=== PATIENT | male | born 1950 | race Caucasian/White ===

== ENCOUNTER 2017-04-16 08:10 | Outpatient (CLI) | payer MEDICARE, OTHER ==
[2017-04-16] MEDS ORDERED: ALBUTEROL NEB 2.5 MG/3 ML INH ONE (10:00)
--- NOTE | 2017-04-21 07:28 | Ultrasound Report ---
EXAMINATION: AORTA SCREEN 04/16/2017. CLINICAL INDICATION: Screening. TECHNIQUE: Real-time scanning was performed with delivery representative static images obtained. FINDINGS: The abdominal aorta is normal in caliber, measuring 2.6 cm proximally , 1.9 cm in the mid portion, and 1.9 cm distally. The iliacs are normal in caliber. No free fluid is present. IMPRESSION: No evidence of abdominal aortic aneurysm. TD: 04/16/2017 10:48 [facility]
== END 2017-04-16 08:11 | disposition home or self-care (01) ==
LOC: DI 08:10
PROVIDERS: ATTEND Specialist
DX: Z11.59 Encounter for screening for other viral diseases (principal); J98.4 Other disorders of lung
CPT/HCPCS: 76706; 94010; 94729

== ENCOUNTER 2017-04-30 12:05 | Outpatient (CLI) | payer MEDICARE, OTHER ==
[2017-04-30] MEDS ORDERED: IOPAMIDOL-300 100 ML VIAL ONE (12:22)
[2017-04-30] MEDS ORDERED: IOPAMIDOL-300 100 ML VIAL IVP ONE (13:38)
--- NOTE | 2017-05-04 15:17 | CT Report ---
DATE OF SERVICE: 04/30/2017 CT CHEST WITH CONTRAST: 04/30/2017 CLINICAL INDICATION: Abnormal chest x-ray. TECHNIQUE: Axial CT images of the chest were obtained with 80 mL Isovue [address] intravenously. In accordance with CT protocol optimization, one or more of the following dose reduction techniques w ere utilized for this exam: Automated exposure control, adjustment of mA and/or KV based on patient size , or use of iterative reconstructive technique. COMPARISON: Chest x-ray 10/03/2015. FINDINGS: The heart and great vessels demonstrate mild atherosclerotic calcifications. No hilar or mediastinal lymphadenopathy is present. The lungs are clear. No effusion or pneumothorax is present . Limited evaluation of upper abdominal structures demonstrates normal adrenal glands. Osseous structu res demonstrate degenerative changes. IMPRESSION: No evidence of pulmonary nodule or mass lesion. TD: 04/30/2017 22:51
== END 2017-04-30 12:06 | disposition home or self-care (01) ==
LOC: DI 12:05
PROVIDERS: ATTEND Internal Medicine
DX: R91.8 Other nonspecific abnormal finding of lung field (principal); M81.0 Age-related osteoporosis without current pathological fracture; Z96.643 Presence of artificial hip joint, bilateral
CPT/HCPCS: 71260; 77080; 77081; Q9967

== ENCOUNTER 2017-04-30 12:06 | Outpatient (CLI) | payer MEDICARE, OTHER ==
--- NOTE | 2017-05-05 15:54 | DEXA Report ---
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 TECHNIQUE: Dual energy x-ray absorptiometry (DXA) was performed on a [employer] system. Regions measured are the AP spine, femoral neck, and, if needed, forearm. COMPARISON: None. In accordance with the International Society for Clinical Densitometry (ISCD) guidelines, data from previous exams may be reanalyzed using current recommendations and techniques. This is done to allow a more accurate basis for comparison with the current study. FINDINGS Data for the lumbar spine is as follows: REGION BMD (g/cm/cm) T-SCORE Z-SCORE L1 1.477 2.6 2.6 L2 1.605 3.0 3.0 L3 1.670 3.6 3.5 L1-L3 1.588 3.1 3.1 NOTE: All evaluable vertebrae are used for classification. Data for the left forearm is as follows: REGION BMD (g/cm/cm) T-SCORE Z-SCORE 1/3 0.994 0.0 0.8 NOTE: The 33% radius of the nondominant forearm is used for classification. IMPRESSION 1. THE WHO CLASSIFICATION BASED ON THE INTERNATIONAL REFERENCE STANDARD IS NORMAL. THE FRACTURE RISK IS NOT INCREASED. 2. LEFT FOREARM PERFORMED DUE TO BILATERAL HIP REPLACEMENTS. L4 EXCLUDED, DUE TO THE PATIENT'S REPORTED HISTORY OF L4-L5 SURGERY. RECOMMENDATION: Patients with diagnosis of osteoporosis or osteopenia should have regular bone mineral density assessment. For those eligible for Medicare, routine testing is allowed once every 2 years. Testing frequency can be increased for patients who have rapidly progressing disease or for those who are receiving medical therapy to restore bone mass. COMMENT: World Health Organization (WHO) definitions for osteoporosis and osteopenia: NORMAL BMD: T-score at 1.0 or higher, fracture risk is low. OSTEOPENIA BMD: T-score between 1.0 and -2.5, fracture risk is increased. OSTEOPOROSIS BMD: T-score at 2.5 or lower, fracture risk high. National Osteoporosis Foundation recommends: 1. Obtain adequate dietary calcium (at least 1200 mg per day) and vitamin D (400 -800 international units per day). 2. Participate, as appropriate, in regular weightbearing and muscle- strengthening exercise. 3. Avoid tobacco use and reduce alcohol and caffeine intake. 4. For more detailed information see the website at www.NOF.org. MTDD
== END 2017-04-30 12:07 | disposition home or self-care (01) ==
LOC: DI 12:06
PROVIDERS: ATTEND Specialist
DX: M81.0 Age-related osteoporosis without current pathological fracture (principal); Z96.643 Presence of artificial hip joint, bilateral
CPT/HCPCS: 77080; 77081

== ENCOUNTER 2019-02-03 11:23 | Outpatient (CLI) | payer MEDICARE, OTHER ==
--- NOTE | 2019-02-03 16:27 | Nuclear Medicine Report ---
Reason: RT KNEE JOINT REPLACEMENT, R LOOSENING Procedure Date: 02/03/2019 Accession Number: [id number] / [id number] Procedure: NM - Bone 3-Phase CPT Code: FULL RESULT: EXAM: TRIPLE-PHASE BONE SCAN LIMITED EXAM DATE: 02/03/2019 03:44 PM. CLINICAL HISTORY: Painful prosthetic right knee. COMPARISON: None. TECHNIQUE: Patient was injected with 31.4 mCi of technetium 99m MDP intravenously with flow phase gamma camera imaging anteriorly over the knees, 5 seconds per frame for 1 minute. Subsequently, blood pool images of the pelvis, knees, and feet were obtained. The patient returned 3 hours later for multiple spot images of the knees and feet. FINDINGS: Flow Phase: There is asymmetrically increased arterial flow to the entire right lower extremity. Normal left lower extremity flow. Blood Pool Phase: There is increased right periprosthetic scintigraphic activity on blood pool imaging. Otherwise normal blood pool phase. Delayed Phase: On delayed imaging, there is generalized increased scintigraphic activity of the entire distal right femur and proximal right tibia which is secondary to asymmetrically increased blood flow to that extremity. In addition, there is focally increased scintigraphic activity adjacent to both the femoral and tibial components. No scintigraphic abnormality of the left knee. IMPRESSION: 1. Abnormal scintigraphic findings of the right lower extremity and periprosthetic right knee on all three phases, as described above. The scintigraphic findings predominate in the arterial flow and blood pool phases, suggesting infection. RADIA
== END 2019-02-03 11:24 | disposition home or self-care (01) ==
LOC: DI 11:23
PROVIDERS: ATTEND Orthopaedic Surgery
DX: R93.6 Abnormal findings on diagnostic imaging of limbs (principal); Z96.651 Presence of right artificial knee joint
CPT/HCPCS: 78315

== ENCOUNTER 2019-07-20 12:09 | Outpatient (CLI) | payer MEDICARE, OTHER ==
--- NOTE | 2019-07-20 23:35 | XRAY Report ---
Reason: WHEEZING Procedure Date: 07/20/2019 Accession Number: [id number] / [id number] Procedure: XR - Chest 2 View X-Ray CPT Code: 80320 Final Report FULL RESULT: EXAM: CHEST RADIOGRAPHY EXAM DATE: 07/20/2019 12:20 PM. CLINICAL HISTORY: WHEEZING. COMPARISON: CHEST 2 VIEW PA/LAT 10/03/2015 7:55 AM. TECHNIQUE: 2 views. FINDINGS: Lungs/Pleura: Minimal left base linear atelectasis or scarring, unchanged. No consolidation, pleural effusion or pneumothorax. Mediastinum: Heart and mediastinal contours are unremarkable. IMPRESSION: No acute findings. RADIA
== END 2019-07-20 12:10 | disposition home or self-care (01) ==
LOC: DI 12:09
PROVIDERS: ATTEND Internal Medicine
DX: R06.2 Wheezing (principal)
CPT/HCPCS: 71046

== ENCOUNTER 2019-09-27 09:24 | Outpatient (CLI) | payer MEDICARE, OTHER ==
[~2019-09-27 09:24] MED LIST: ALBUTEROL 1 PUFF INH SCH
== END 2019-09-27 09:25 | disposition home or self-care (01) ==
LOC: RT 09:24
PROVIDERS: ATTEND Internal Medicine
DX: R06.2 Wheezing (principal)
CPT/HCPCS: 94060

== ENCOUNTER 2020-03-19 10:52 | Outpatient (CLI) | payer MEDICARE, OTHER | END 2020-03-19 10:53 | disposition home or self-care (01) | LOC: LAB.S 10:52 | PROVIDERS: ATTEND Urology | DX: N39.0 Urinary tract infection, site not specified (principal) | CPT/HCPCS: 87086 ==

== ENCOUNTER 2020-10-02 15:17 | Outpatient (CLI) | payer MEDICARE, OTHER ==
--- NOTE | 2020-10-02 15:55 | CT Report ---
PROCEDURE: Abdomen/Pelvis WO INDICATIONS: VENTRAL HERNIA TECHNIQUE: Noncontrast 5 mm thick sections acquired from the diaphragms to the symphysis. 5 mm coronal and sagi ttal reformats were then performed. For radiation dose reduction, the following was used: automated exposure control, adjustment of mA and/or kV according to patient size. COMPARISON: None. FINDINGS: Image quality: Degraded by hip arthroplasty artifact.. ABDOMEN: Lung bases: Lung bases are clear. Heart size is normal. Solid organs: Liver and spleen are normal in size. Gallbladder is contracted Pancreas is normal in contours. No adrenal nodules. Kidneys are normal in size, without hydronephrosis or nephrolithiasi s. Parapelvic left renal cysts are present. Peritoneum and bowel: Unenhanced bowel loops demonstrate normal wall thickness and caliber. No free fluid or air. Nodes and vessels: No retroperitoneal or mesenteric adenopathy by size criteria. Aorta and inferior vena cava are normal in caliber. Miscellaneous: Fat-containing periumbilical anterior abdominal wall hernia measuring roughly 45 mm tr ansverse without bowel contents. Mild fast rating within the herniated fat is present, possibly indic ating incarceration. There is mesh within the anterior abdominal wall just superior to this hernia. PELVIS: Genitourinary: Bladder wall thickness is normal. Miscellaneous: No inguinal hernias or adenopathy. Bones: No suspicious bony lesions. No vertebral body compression fractures. IMPRESSION: 1.Perimesh bilateral hip arthroplasty has been performed. Fat-containing hernia with possible incarce ration. No bowel contents within the hernia. Reviewed by: Scarlett Dawkins MD on 10/02/2020 3:53 PM PDT Approved by: Scarlett Dawkins MD on 10/02/2020 3:53 PM PDT Station ID: [id number]
== END 2020-10-02 15:18 | disposition home or self-care (01) ==
LOC: DI 15:17
PROVIDERS: ATTEND General Practice
DX: K46.9 Unspecified abdominal hernia without obstruction or gangrene (principal); Z96.643 Presence of artificial hip joint, bilateral

== ENCOUNTER 2020-10-04 14:00 | Outpatient (CLI) | payer MEDICARE, OTHER | END 2020-10-04 14:01 | disposition home or self-care (01) | LOC: COV 14:00 | PROVIDERS: ATTEND General Practice | DX: Z01.812 Encounter for preprocedural laboratory examination (principal); K43.2 Incisional hernia without obstruction or gangrene; Z20.822 Contact with and (suspected) exposure to COVID-19 ==

== ENCOUNTER 2021-03-31 08:00 | Outpatient (CLI) | payer MEDICARE, OTHER ==
--- NOTE | 2021-03-31 08:54 | XRAY Report ---
PROCEDURE: Lumbar Spine 2 View INDICATIONS: RIGHT SIDED SCIATICA TECHNIQUE: 3 views of the lumbar spine were acquired. COMPARISON: None. FINDINGS: Bones: 5 [id number] vertebrae are present. There is dextro convex curvature of the lumbar spine . No vertebral body compression fractures. No suspicious bony lesions. Multilevel disc space narrow ing and degenerative endplate changes are seen throughout the lumbar spine. There is moderate to lyssa re facet hypertrophy from L3-4 through L5-S1. Bilateral hip arthroplasties are partially imaged. Soft tissues: Overlying bowel gas pattern is normal. No suspicious soft tissue calcifications. IMPRESSION: No acute osseous abnormality. Moderate to severe spondylosis and mild dextroconvex scoli osis are noted. Reviewed by: Keanu Kerr MD on 03/31/2021 8:53 AM PST Approved by: Keanu Kerr MD on 03/31/2021 8:53 AM [facility] Station ID: [id number]
== END 2021-03-31 23:59 | disposition home or self-care (01) ==
LOC: DI.S 08:00
PROVIDERS: ATTEND Physician Assistant
DX: M47.816 Spondylosis without myelopathy or radiculopathy, lumbar region (principal); M41.9 Scoliosis, unspecified; M47.817 Spondylosis without myelopathy or radiculopathy, lumbosacral region

== ENCOUNTER 2021-04-10 13:59 | Outpatient (CLI) | payer MEDICARE, OTHER ==
--- NOTE | 2021-04-10 17:09 | MRI Report ---
PROCEDURE: Lumbar Spine W/O INDICATIONS: R BACK PAIN LEG PAIN TECHNIQUE: Noncontrast sagittal T1 spin echo and T2 fast echo, sagittal STIR, axial T1 and T2 fast spin echo thr ough the lumbar spine. In cases with scoliosis, additional coronal T2 fast spin echo may be performe d. COMPARISON: Correlation is made with lumbar plain films, 03/31/2021. Correlation is also made with a bdomen and pelvis CT, 10/02/2020. FINDINGS: Image quality: Motion artifact is noted. Alignment and Curvature: Mild dextroconvex scoliotic curvature is seen. There is mild retrolisthesis seen at the L1-L2 level. Bone Marrow: Marrow is of normal overall signal. No acute vertebral body compression fractures. Spinal Cord: Conus medullaris terminates at the T12-L1 level. Visualized cord demonstrates normal s ignal and size. Paraspinous Soft Tissues: No paravertebral masses. Relatively prominent left peripelvic cysts are s een, with mild right kidney parapelvic cysts. T12-L1: Mild loss of disc height and disc signal are seen. Mild to moderate disc bulge is seen, with a slight central/right disc protrusion seen. No significant neuroforaminal narrowing is seen. Mild central canal narrowing is seen. L1-L2: Moderate to severe loss of disc height and disc signal can be seen. Reactive marrow endplat e changes are seen, which demonstrate mixed signal and are attributed to a combination of edema and f atty metaplasia (Modic type I and Modic type II changes). At least moderate disc bulge is seen, whic h is eccentric to the right. Posteriorly directed endplate osteophytes are seen, with an associated c entral disc protrusion. Mild to moderate facet hypertrophy is seen. There is at least moderate bilate ral neuroforaminal narrowing seen, left worse than right. Moderate to severe central canal narrowing is seen, as on series 601 image 30. L2-L3: At least moderate loss of disc height and disc signal can be seen. Moderate disc bulge is seen at this level. Mild facet hypertrophy is seen. There is moderate left-sided and minimal righ t-sided neuroforaminal narrowing seen. Moderate central canal narrowing is seen. L3-L4: Moderate to severe loss of disc height and disc signal can be seen. Reactive marrow endplat e changes are seen, which are hyperintense on T1-weighted and T2-weighted imaging, without significan t increased STIR signal. These imaging findings are most consistent with fatty metaplasia (Modic type 2 change). At least moderate disc bulge is seen. There is a relatively prominent central disc protr usion seen. Moderate facet hypertrophy is seen. Associated hypertrophy of the ligamentum flavum can be seen. Moderate to severe bilateral neuroforaminal narrowing can be seen, left worse than right. Compression is seen upon the exiting nerve roots. Severe central canal narrowing is seen, as on seri es 601 image 18. L4-L5: At least moderate loss of disc height and disc signal can be seen at this level. Postoperati ve changes are seen, with prior left hemilaminectomy. Moderate disc bulge is seen at this level. A mild superimposed central disc protrusion can be seen. At least moderate facet hypertrophy is seen. T here is moderate bilateral neuroforaminal narrowing seen. Moderate central canal narrowing is seen. L5-S1: Moderate loss of disc height and signal are seen. Moderate disc bulge is seen, which is ecce ntric to the left. Moderate facet hypertrophy is seen. There is moderate to severe bilateral neurof oraminal narrowing seen. Compression is seen upon the exiting nerve roots. Moderate central canal n arrowing is seen. IMPRESSION: Multiple levels of lumbar spine degenerative change are seen, which are overall worst in feriorly. There is severe central canal narrowing seen at L3-L4. Several sites of significant neuroforaminal narrowing can be seen, with associated exiting nerve root compression. Mild dextroconvex scoliotic curvature is seen. Prior right hemilaminectomy change at L4-L5. Reviewed by: Eamon Raya MD on 04/10/2021 4:08 PM [facility] Approved by: Eamon Raya MD on 04/10/2021 4:08 PM [facility] Station ID: [id number]
== END 2021-04-10 14:00 | disposition home or self-care (01) ==
LOC: DI 13:59
PROVIDERS: ATTEND Physician Assistant
DX: M51.35 Other intervertebral disc degeneration, thoracolumbar region (principal); M48.05 Spinal stenosis, thoracolumbar region; M51.25 Other intervertebral disc displacement, thoracolumbar region; M51.36 Other intervertebral disc degeneration, lumbar region; M51.26 Other intervertebral disc displacement, lumbar region; M48.061 Spinal stenosis, lumbar region without neurogenic claudication; M47.815 Spondylosis without myelopathy or radiculopathy, thoracolumbar region; M47.816 Spondylosis without myelopathy or radiculopathy, lumbar region; M47.817 Spondylosis without myelopathy or radiculopathy, lumbosacral region; M51.37 Other intervertebral disc degeneration, lumbosacral region; M48.07 Spinal stenosis, lumbosacral region

== ENCOUNTER 2021-09-30 08:00 | Outpatient (CLI) | payer MEDICARE, OTHER | END 2021-09-30 23:59 | disposition home or self-care (01) | LOC: LAB.S 08:00 | PROVIDERS: ATTEND Physician Assistant Medical | DX: R07.0 Pain in throat (principal); Z20.822 Contact with and (suspected) exposure to COVID-19 | CPT/HCPCS: 87070; U0004 ==

== ENCOUNTER 2021-10-28 07:21 | Outpatient (CLI) | payer MEDICARE, OTHER ==
--- NOTE | 2021-10-28 08:55 | XRAY Report ---
PROCEDURE: Chest 2 View X-Ray INDICATIONS: COUGH TECHNIQUE: 2 view(s) of the chest. COMPARISON: 2 views of the chest dated 07/20/2019 FINDINGS: Surgical changes and devices: None. Lungs and pleura: No pleural effusions or pneumothorax. Lungs are clear. Mediastinum: Mediastinal contours are normal. Heart size is normal. Bones and chest wall: No suspicious bony abnormalities. Soft tissues appear unremarkable. IMPRESSION: No acute cardiopulmonary findings. Reviewed by: Lor Cramer MD on 10/28/2021 8:53 AM PDT Approved by: Lor Cramer MD on 10/28/2021 8:53 AM PDT Station ID: [id number]
== END 2021-10-28 07:22 | disposition home or self-care (01) ==
LOC: DI.S 07:21
PROVIDERS: ATTEND Physician Assistant
DX: R05.9 Cough, unspecified (principal)

== ENCOUNTER 2022-03-19 11:25 | Outpatient (CLI) | payer MEDICARE, OTHER ==
[2022-03-19 12:20] LABS: INFLUENZA A- RESP PCR PANEL NOT DETECTED; INFLUENZA B - RESP PCR PANEL NOT DETECTED; RSV- RESP PCR PANEL DETECTED; SARS-CoV-2 -RESP PCR PANEL NOT DETECTED
== END 2022-03-19 11:26 | disposition home or self-care (01) ==
LOC: LAB 11:25
PROVIDERS: ATTEND Physician Assistant Medical
DX: J02.9 Acute pharyngitis, unspecified (principal); Z20.822 Contact with and (suspected) exposure to COVID-19
CPT/HCPCS: 87637

== ENCOUNTER 2022-03-30 08:00 | Outpatient (CLI) | payer MEDICARE, OTHER ==
--- NOTE | 2022-03-30 15:14 | XRAY Report ---
PROCEDURE: Chest 2 View X-Ray INDICATIONS: ACUTE COUGH TECHNIQUE: 2 views of the chest were acquired. COMPARISON: 10/28/2021 FINDINGS: Surgical changes and devices: None. Lungs and pleura: No pleural effusions or pneumothorax. Minor strandy bibasilar scarring, chronic. Lungs are otherwise clear. Mediastinum: Mediastinal contours are normal. Heart size is normal. Bones and chest wall: No suspicious bony abnormalities. Soft tissues appear unremarkable. IMPRESSION: 1. No acute cardiopulmonary disease. 2. Chronic bibasilar scarring. Reviewed by: Kathy Kelly MD on 03/30/2022 3:13 PM PST Approved by: Kathy Kelly MD on 03/30/2022 3:13 PM PST Station ID: [id number]
== END 2022-03-30 23:59 | disposition home or self-care (01) ==
LOC: DI.S 08:00
PROVIDERS: ATTEND Physician Assistant
DX: R05.1 Acute cough (principal)

== ENCOUNTER 2022-09-15 12:06 | Outpatient (CLI) | payer MEDICARE, OTHER ==
[2022-09-15 12:29] LABS: CREATININE 0.9 mg/dL (0.6-1.2)
[2022-09-15] MEDS ORDERED: iohexoL-300 100 ML VIAL IVP ONE (15:26)
--- NOTE | 2022-09-15 16:20 | CT Report ---
PROCEDURE: CHEST W INDICATIONS: CHRONIC COUGH CONTRAST: 100ml Omnipaque 300 TECHNIQUE: After the administration of intravenous contrast, 1 mm axial images were acquired from the pulmonary apices through the posterior costophrenic angles. Axial 5 mm soft tissue kernel reconstructions were performed as well as 8 mm axial MIP and coronal and sagittal 5 mm reformations. For radiation dose reduction, the following was used: automated exposure control, adjustment of mA and/or kV according to patient size. COMPARISON: CT abdomen pelvis 10-21, CT chest 04/30/2017 FINDINGS: Image quality: Excellent. Lungs and pleura: No consolidation. No pleural effusions. No pneumothorax. No suspicious pulmonary n odules which require follow up. Mediastinum: Heart size is normal. No pericardial effusions. No mediastinal adenopathy by size criter ia. No large vessel abnormality. Mild hiatal hernia. Chest wall and lower neck: Thyroid is unremarkable. No axillary or supraclavicular adenopathy by size . Bones: No aggressive osseous abnormality. Upper Abdomen: Unremarkable. IMPRESSION: No acute pulmonary process. Reviewed by: Meena Nye MD on 09/15/2022 4:18 PM PDT Approved by: Meena Nye MD on 09/15/2022 4:18 PM PDT Station ID: [id number]
--- NOTE | 2022-09-15 18:10 | CT Report ---
PROCEDURE: SINUS SCREENING WO INDICATIONS: SINUSITIS TECHNIQUE: Noncontrast 3.0 mm axial images acquired from the frontal sinuses to the mid-sella, with coronal and sagittal reformats. For radiation dose reduction, the following was used: automated exposure control , adjustment of mA and/or kV according to patient size. COMPARISON: Correlation is made with head CT, 02/20/2016. FINDINGS: Image quality: Excellent. Maxillary Sinuses: Moderate mucosal thickening is seen within the maxillary sinuses, left worse than right. There is demineralization of the medial reed of the maxillary sinuses. Ethmoid Air Cells: Moderate mucosal thickening can be seen anteriorly. There is demineralization of several reed of the ethmoid air cells. Sphenoid Sinuses: No bony remodeling or destruction. Minimal mucosal thickening can be seen anterior ly. Frontal Sinuses: No bony remodeling or destruction. Mild to moderate mucosal thickening can be seen within the inferior medial frontal sinuses. Ostiomeatal Complexes: The ostiomeatal complexes are patent, yet they are constitutionally narrowed, with bilateral Carlos Manuel cells. Miscellaneous: Visualized intra-orbital contents are normal. No kishor bullosa. There is mild to m oderate S shaped nasal septal deviation. IMPRESSION: Multifocal paranasal sinus disease, which is worst within the maxillary sinuses. Areas of bony demineralization are seen, which are consistent with chronic sinusitis. The ostiomeatal complexes are patent, yet they are constitutionally narrowed, with bilateral Carlos Manuel c ells. Reviewed by: Eamon Raya MD on 09/15/2022 5:09 PM [facility] Approved by: Eamon Raya MD on 09/15/2022 5:09 PM [facility] Station ID: [id number]
== END 2022-09-15 12:07 | disposition home or self-care (01) ==
LOC: LAB 12:06
PROVIDERS: ATTEND Student in an Organized Health Care Education/Training Program
DX: R05.3 Chronic cough (principal); J01.80 Other acute sinusitis
CPT/HCPCS: 36415; 82565

== ENCOUNTER 2022-09-15 15:19 | Outpatient (CLI) | payer MEDICARE, OTHER ==
[~2022-09-15 15:19] MED LIST changes: -ALBUTEROL 1 PUFF INH SCH; +ALBUTEROL 1 PUFF INH STA; +iohexoL-300 100 ML VIAL ONE
== END 2022-09-15 23:59 | disposition home or self-care (01) ==
LOC: RT 15:19
PROVIDERS: ATTEND Student in an Organized Health Care Education/Training Program
DX: R05.3 Chronic cough (principal)
CPT/HCPCS: 94060; 94727; 94729; Q9967

== ENCOUNTER 2022-10-06 13:07 | Outpatient (CLI) | payer MEDICARE, OTHER ==
--- NOTE | 2022-10-06 13:58 | XRAY Report ---
PROCEDURE: Calcaneus RT INDICATIONS: ACUTE RT CALCANEUS PX TECHNIQUE: Two views of the calcaneus were acquired. COMPARISON: None FINDINGS: Bones: No fractures or dislocations. No suspicious bony lesions. Soft tissues: No suspicious calcifications. Achilles tendon appears normal. IMPRESSION: No evidence acute bony abnormality of the right calcaneus Reviewed by: Shaun Chandler MD on 10/06/2022 1:57 PM PDT Approved by: Shaun Chandler MD on 10/06/2022 1:57 PM PDT Station ID: [id number]
== END 2022-10-06 13:08 | disposition home or self-care (01) ==
LOC: DI 13:07
PROVIDERS: ATTEND Podiatrist
DX: M79.671 Pain in right foot (principal)

== ENCOUNTER 2022-10-16 12:35 | Day surgery (SDC) | payer MEDICARE, OTHER ==
[2022-10-16] MEDS ORDERED: LACTATED RINGERS 1,000 ML IV ONE ×2 (12:38→14:05)
--- NOTE | 2022-10-16 13:14 | ANESTHESIA ---
Pre-Anesthesia VS, & Labs - Diagnosis questionable silent reflux - Procedure EGD Vital Signs: Temp Pulse Resp BP Pulse Ox O2 Flow Rate 36.3 C L 78 18 140/91 H 97 10/16/22 12:51 10/16/22 12:51 10/16/22 12:51 10/16/22 12:51 10/16/22 12:51 Height: 5 ft 11 in Weight (kg): 94 kg Body Mass Index: 28.9 BMI Classification: Overweight - NPO >8 hours - Lab Results Lab results reviewed: Yes Home Medications and Allergies Allergies/Adverse Reactions: Allergies Allergy/AdvReac Type Severity Reaction Status Date / Time No Known Drug Allergies Allergy Verified 10/16/22 12:55 Anes History & Medical History - Anesthetic History Anesthesia Complications: reports: No previous complications Family history of Anesthesia Complications: Denies Family history of Malignant Hyperthermia: Denies - Medical History Cardiovascular: reports: None Pulmonary: reports: Asthma Gastrointestinal: reports: GERD (questionable, denies symptoms) Urinary: reports: None Neuro: reports: None Musculoskeletal: reports: None Endocrine/Autoimmune: reports: None Blood Disorders: reports: None Skin: reports: None Smoking Status: Never smoker Psychosocial: reports: No issues indicated Exam General: Alert, Oriented x3, Cooperative Dental: WNL Mouth Openin Fingerbreadth Neck Mobility: Normal Mallampati classification: II Thyromental Distance: 4-6 cm Cardiovascular: Regular rate Plan Anesthesia Type: MAC Consent for Procedure(s) Verified and Reviewed: Yes Code Status: Attempt Resuscitation ASA classification: 2-Mild systemic disease Is this case an emergency?: No
[2022-10-16] MEDS ORDERED: LIDOCAINE-PF 2% 10 ML AMP SUBQ ONE (13:41)
[2022-10-16] MEDS ORDERED: PROPOFOL 500 MG/50 ML 500 MG/50 ML VIAL ONE (13:41)
[2022-10-16 14:14] VITALS: BP 139/90
--- NOTE | 2022-10-16 16:40 | ANESTHESIA POST OP EVALUATION ---
Anesthesia Post Eval - Post Anesthesia Eval Vitals: Last Vital Signs Temp 36.7 C 10/16/22 14:26 Pulse 78 10/16/22 14:26 Resp 16 10/16/22 14:26 BP 139/90 H 10/16/22 14:26 Pulse Ox 96 10/16/22 14:26 O2 Flow Rate CV Function Including HR & BP: Stable Pain Control: Satisfactory Nausea & Vomiting: Negative Mental Status: Baseline Respiratory Status: Airway Patent Hydration Status: Satisfactory Anesthesia Complications: None
== END 2022-10-16 12:36 | disposition home or self-care (01) ==
LOC: SDS 12:35
PROVIDERS: ATTEND Surgery
PROC: 0DB58ZX Excision of Esophagus, Via Natural or Artificial Opening Endoscopic, Diagnostic (ICD-10-PCS; principal; 2022-10-16 14:15)
DX: R05.8 Other specified cough (principal); J45.901 Unspecified asthma with (acute) exacerbation
CPT/HCPCS: 43239; J7120

== ENCOUNTER 2022-11-26 10:02 | Outpatient (CLI) | payer MEDICARE, OTHER ==
--- NOTE | 2022-11-26 10:49 | Sleep Patient Instructions ---
Sleep Center Visit Summary - Patient Visit Information Reason for Visit: Initial consult for evaluation of sleep disordered breathing and other sleep issues. - Patient Instructions Instructions Attached: Sleep Study, Sleep Clinic Visit, Sleep Study Home Monitor Additional Instructions: You will be completing a sleep study, either an in-lab polysomnography (PSG) or home sleep study (HST). You will follow-up in the sleep care office after the sleep study is completed to hear the results and talk about therapy, if needed. You will be called by our office staff to schedule this appointment, but you may contact us with any questions. - Clinic Information Contact: [facility] [address] [place] [address] [email or web address] T: [phone]
--- NOTE | 2022-11-26 11:00 | SLEEP CARE CONSULTATION ---
Information from patient questionnaire entered by Yocasta Lr. I have reviewed and concur with the information entered by Yocasta Lr. This document represents the service I personally performed and the decisions made by me, Aida Fang ARNP. History of Present Illness Service Date and Time: 11/26/2022 1002 Reason for Visit: New patient Chief Complaint: reports: Snoring, Observed pauses in breathing Date of Onset: 2-3YRS Usual bedtime: 10PM Time it takes to fall asleep: 2-3MIN Snores at night: Yes Observed to quit breathing while asleep: Yes Sleeps alone due to snoring: No Number of times waking at night: SEVERAL Reasons for waking at night: reports: Other (UNKNOWN; things on his mind). denies: Choking, Snoring, Gasping for air Toss, Turn, or Twitch while sleeping: Yes Recalls having dreams: Yes (has some vivid dreams) Usually gets out of bed at: 5-530AM Feels refreshed in the morning: Yes (moderately rested) Morning headache: No Sleepy or fatigued during the day: No Ever fallen asleep while driving: No Takes day naps: Yes (daily during week; 20-25 mins) Dreams during day naps: No Prior sleep studies: No Additional HPI information: I had the pleasure of seeing JACK MARTIN today regarding the possibility of him having a sleep disorder. His current complaints are snoring and observed pauses in breathing. Patient states his is concerned because his snoring is worsening. He states he snores more when he is laying on his back. She has also noticed that he would have more pauses in breathing. 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 He states he is mostly refreshed in the mornings when he gets out of bed. He falls asleep quickly, wakes up frequently at night and averages 5 to 6 hours of sleep. - Parasomnia Symptoms Ever been unable to move upon waking from sleep: No Walks in sleep: No Talks in sleep: No Ever acted out dreams in sleep: No Ever felt weak in the knees when startled or emotional: No Bothered by creepy, crawly, restless sensations in legs: No Problems with memory or concentration: No Subjective Initial [place] Sleepiness Scale score: 13 (11/26/22) Past Medical History Past Medical History: reports: Asthma, Other (BPH) Social History The patient's occupation is a RETIRED 2020. Patient is and lives in [place]. Have you smoked in the past 12 months: No Alcohol use: Yes Alcohol amount and frequency: 2-4 GLASSES WINE DAILY Caffeine use: Yes Caffeine amount and frequency: 1-2 CUPS DAILY Family History Family history of sleep disordered breathing: No (don't know) Allergies and Home Medications Known drug allergies: No Drug allergies reviewed: Yes Home medication list reviewed: Yes Allergy and home medication list: Allergies No Known Drug Allergies Allergy (Verified 11/25/22 13:27) Medications: Flomax Advair Review of Systems Weight gain over past 5 years: 10 Cardiovascular: denies: high blood pressure Respiratory: reports: chronic cough (FOR 6-8MONTHS STOPPED APPX October) Gastrointestinal: denies: heartburn Neurological: denies: headaches Psychiatric: denies: anxiety, depression Ear/Nose/Throat: denies: tonsillectomy Physical Exam Vital signs obtained and entered by: YOCASTA Moore MA Blood Pressure: 142/82 (LEFT ARM) Cuff size: regular Heart Rate: 75 O2 Saturation: 97 Height: 5 ft 11 in Weight: 216 lb 3.2 oz Body Mass Index: 30.1 BMI Classification: Obese Neck circumference: 16 Mouth and throat: narrow oropharynx Soft palate: long Hard palate: normal Uvula: normal Uvula visualization: 25% Mallampati Class III Tongue: enlarged in size with teeth rivas on lateral edges Tonsils: small Neck: normal w/o lymphadenopathy or thyromegaly Heart: regular rate and rhythm Lungs: clear bilaterally Impression and Plan 1. Suspected Obstructive Sleep Apnea-Hypopnea Syndrome, as suggested by a history of loud and irregular snoring, observed cessation of breath while asleep and frequent awakening during the night. Narrow oropharynx and obesity are common predisposing factors for obstructive sleep apnea-hypopnea syndrome. I recommend proceeding to polysomnography to confirm the diagnosis and to assess severity. If the patient has significant sleep disordered breathing, a manual CPAP titration study will also be performed to find the optimal treatment pressure. I informed the patient of what the sleep studies involve and after some discussion, obtained agreement to proceed. The pathophysiology of obstructive sleep apnea-hypopnea syndrome was discussed with the patient and health risks of cardiovascular and cerebrovascular disease if not treated. 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 Patient agreed to plan. * Schedule polysomnography * Avoid long distance driving or driving when feeling sleepy. * Avoid alcohol, sedative and muscle relaxant around bedtime. * Attempt to lose weight. * Review instructions provided by trained office staff on how to prepare for the sleep study. * Return for follow-up after sleep study completed. Counseling Topics: Weight loss health impact Visit Type: In Office Time Spent with Patient (minutes): 36 Provider Statement: I spent 100% of the Face to Face Visit with the patient with greater than 50% spent counseling the patient and coordination of care.
[2022-11-26 11:06] VITALS: BP 142/82
== END 2022-11-26 10:03 | disposition home or self-care (01) ==
LOC: SC 10:02
PROVIDERS: ATTEND Nurse Practitioner Family
DX: G47.8 Other sleep disorders (principal); R06.83 Snoring; R06.81 Apnea, not elsewhere classified; E66.9 Obesity, unspecified; Z68.30 Body mass index [BMI] 30.0-30.9, adult
CPT/HCPCS: 99203; G0463; 99212

== ENCOUNTER 2022-12-30 20:34 | Outpatient (CLI) | payer MEDICARE, OTHER | END 2022-12-30 20:35 | disposition home or self-care (01) | LOC: SC 20:34 | PROVIDERS: ATTEND Nurse Practitioner Family | DX: G47.33 Obstructive sleep apnea (adult) (pediatric) (principal); G47.61 Periodic limb movement disorder | CPT/HCPCS: 95810 ==

== ENCOUNTER 2023-01-13 11:22 | Outpatient (CLI) | payer MEDICARE, OTHER ==
--- NOTE | 2023-01-13 11:19 | SLEEP CARE CONSULTATION ---
Information from patient questionnaire entered by Mandi Lr. I have reviewed and concur with the information entered by Mandi Lr. This document represents the service I personally performed and the decisions made by , Aida Fang ARNP. History of Present Illness Service Date and Time: 01/13/2023 1040 Accompanied by: Spouse Initial [place] Sleepiness Scale score: 13 (11/26/22) Current [place] Sleepiness Scale score: 9 (01/13/2023) Additional HPI information: JACK MARTIN returns via video telehealth visit for follow up and results of the recently performed polysomnography. He has sleep study showed moderate obstructive sleep apnea with an average AHI of 15 and tammy oxygen saturation of 84%. He also had mild periodic leg movements of sleep that did not contribute to sleep fragmentation. I explained the pathophysiology behind obstructive sleep apnea. We then spent quite a bit of time discussing different treatment options. For mild obstructive sleep apnea, surgery and oral appliance are alternatives to nasal CPAP therapy but in moderate or severe cases, nasal CPAP is the most effective and reliable treatment. I reviewed the impact of weight changes on sleep apnea and strongly recommended losing weight. Patient counseled not drink alcohol less than 4 hours before bedtime as it can increase snoring and apnea. Patient was cautioned about risks of drowsy driving until sleepiness symptoms resolve. Patient denies drowsy driving. Sleep Study - Results Type of Sleep Study: Polysomnography (COMPLETED 12/30/22) Prior sleep studies: No Polysomnography/Home Sleep Study results: IMPRESSION: The quality of the study is good. The patient had normal sleep efficiency. The sleep architecture was abnormal for sleep fragmentation and reduced amount of time spent in REM and slow wave sleep (N3). Respiratory monitoring showed moderate obstructive sleep apnea-hypopnea (AHI = 15.0) associated with frequent arousals, oxyhemoglobin desaturation and mild hypoxia (tammy oxygen saturation of 84%). The respiratory events occurred more frequently during supine sleep (supine AHI = 17.0; non-supine = 9.39). Snore was light in intensity. There was mild periodic leg movement of sleep not contributing to the sleep fragmentation. Cardiac rhythm was normal sinus rhythm with occasional premature ventricular contractions. No abnormal behavior (parasomnia) observed during the night. Allergies and Home Medications Known drug allergies: No Drug allergies reviewed: Yes Home medication list reviewed: Yes (no changes) Allergy and home medication list: Allergies No Known Drug Allergies Allergy (Verified 01/12/23 12:06) Review of Systems Review of systems same as previous: Yes (no changes) Physical Exam Vital signs obtained and entered by: MANDI Moore MA Height: 5 ft 11 in (PER PT) Weight: 207 lb (PER PT) Body Mass Index: 28.8 BMI Classification: Overweight Impression and Plan 1. Obstructive Sleep Apnea-Hypopnea Syndrome, moderate, with lowest oxygen saturation of 84%. Obviously this is the cause of the patients symptoms of unrefreshed sleep, and excessive daytime sleepiness. Positive pressure therapy could benefit asthma. The patient chose an oral appliance to treat their apnea. A month follow up will be made once he has his new oral appliance to see if appliance has reduced symptoms. If so, another polysomnography will be ordered with use of the oral appliance to check efficacy in reducing apnea. Until patient is able to use the oral appliance, positional therapy is advised to avoid supine sleep with pillow positioning or one of the commercial products because apnea is more severe supine. 2. Periodic limb movement, mild, that did not fragment patients sleep. Periodic limb movement of sleep (PLMS) is characterized by episodes of repetitive limb movements that occur during sleep and usually involve the lower limbs. The etiology is unknown. Caffeine can aggravate PLMS and should be avoided. Sleep hygiene methods can also improve sleep as well as lifestyle changes such as regular exercise. Patient was advised that no treatment is needed at this time. If symptoms increase, then further evaluation is indicated. * Oral appliance * Attempt to lose weight. * Avoid alcohol consumption near bedtime. * Avoid supine sleep until using oral appliance. * The patient is again cautioned about driving until sleepiness completely resolves. * Return one month after oral appliance obtained. I will assess response to therapy at that time. Counseling Topics: Sleeping position, Weight loss health impact Follow up with Sleep Care in: 3 months (with oral appliance) Plan: Oral appliance Visit Type: Telehealth Video Video Type: Lázaro Patient Location: Home Location of Provider: Office Patient agrees and consents to this telehealth visit type: Yes Patient agrees to have their insurance billed: Yes Time Spent with Patient (minutes): 24 Provider Statement: I spent 100% of the Telehealth Video Call with the patient with greater than 50% spent counseling the patient and coordination of care.
== END 2023-01-13 11:23 | disposition home or self-care (01) ==
LOC: SC 11:22
PROVIDERS: ATTEND Nurse Practitioner Family
DX: G47.33 Obstructive sleep apnea (adult) (pediatric) (principal); G47.61 Periodic limb movement disorder; E66.3 Overweight; Z68.28 Body mass index [BMI] 28.0-28.9, adult

== ENCOUNTER 2023-04-14 08:41 | Outpatient (CLI) | payer MEDICARE, OTHER ==
--- NOTE | 2023-04-14 20:58 | XRAY Report ---
PROCEDURE: Hip w/Pelvis 2-3V RT INDICATIONS: RIGHT HIP PAIN TECHNIQUE: AP pelvis with lateral view(s) of the right hip(s). COMPARISON: None. FINDINGS: Bones: Status post bilateral total hip arthroplasty. Hardware is intact with no perihardware lucency to suggest hardware loosening. Anatomic alignment. No acute fracture or dislocation of the right hip . Mild degenerative changes of the bilateral SI joints and pubic symphysis. [id number] degenera tive changes of the lower lumbar spine. No suspicious bony lesions. Soft tissues: No suspicious soft tissue calcifications or masses. Surgical clips project over the scrotum bilaterally. IMPRESSION: 1.No acute fracture or dislocation. If there is high clinical suspicion for a radiographically occult fracture, consider CT for further evaluation. 2.Bilateral total hip arthroplasty hardware is intact, without complication. Reviewed by: Crystal Cabrera MD on 04/14/2023 8:56 PM PST Approved by: Crystal Cabrera MD on 04/14/2023 8:56 PM PST Station ID: [id number]
== END 2023-04-14 08:42 | disposition home or self-care (01) ==
LOC: DI 08:41
PROVIDERS: ATTEND Physician Assistant
DX: M25.551 Pain in right hip (principal); Z96.643 Presence of artificial hip joint, bilateral

== ENCOUNTER 2023-05-26 08:00 | Outpatient (CLI) | payer MEDICARE, OTHER ==
--- NOTE | 2023-05-26 17:34 | XRAY Report ---
PROCEDURE: Knee 3V LT INDICATIONS: LEFT KNEE PAIN TECHNIQUE: 3 views of the knee(s) were acquired. COMPARISON: None. FINDINGS: Bones: No fractures or dislocations. Osteophytic lipping at the lateral and patellofemoral compartme nts. Overall mild to moderate degenerative change. No suspicious bony lesions. Soft tissues: No knee joint effusion. No suspicious soft tissue calcifications or masses. Chondrocal cinosis. IMPRESSION: No acute bony abnormality. Chondrocalcinosis. Mild to moderate degenerative change. Reviewed by: Dylan Elizalde MD on 05/26/2023 5:33 PM PST Approved by: Dylan Elizalde MD on 05/26/2023 5:33 PM PST Station ID: [id number]
== END 2023-05-26 23:59 | disposition home or self-care (01) ==
LOC: DI.S 08:00
PROVIDERS: ATTEND Internal Medicine
DX: M17.12 Unilateral primary osteoarthritis, left knee (principal); M11.262 Other chondrocalcinosis, left knee

== ENCOUNTER 2023-07-07 12:48 | Outpatient (CLI) | payer MEDICARE, OTHER ==
--- NOTE | 2023-07-07 19:23 | MRI Report ---
PROCEDURE: Lumbar Spine WO INDICATIONS: SPINAL STENOSIS TECHNIQUE: Noncontrast sagittal T1 spin echo and T2 fast echo, sagittal STIR, axial T1 and T2 fast spin echo thr ough the lumbar spine. In cases with scoliosis, additional coronal T2 fast spin echo may be performe d. COMPARISON: MRI lumbar spine 04/10/2021. FINDINGS: Image quality: Excellent. Alignment and Curvature: There is trace multilevel retrolisthesis. Bone Marrow: Marrow is of normal overall signal. Mild reactive endplate changes are present at L5-S1 , minimal L4-5. No acute vertebral body compression fractures. Spinal Cord: Conus medullaris terminates at the L1 level. Visualized cord demonstrates normal signa l and size. Paraspinous Soft Tissues: No paravertebral masses. Simple bilateral renal cysts. Discs: Multilevel moderate to severe disc desiccation. T12-L1: Mild disc bulge with mild spinal stenosis. No foraminal narrowing. No interval change. L1-L2: Mild disc bulge with moderate to severe spinal stenosis. Epidural lipomatosis is present. M oderate bilateral foraminal narrowing, left greater than right. Overall appearance is stable. Facet a nd ligamentum flavum hypertrophy are present. L2-L3: Mild disc bulge with moderate spinal stenosis. Moderate left and minimal right foraminal na rrowing. Facet and ligamentum flavum hypertrophy are present. Overall appearance is stable. L3-L4: Mild disc bulge with severe spinal stenosis and mild canal compression. Moderate to severe l eft and severe right foraminal narrowing, with nerve root compression bilaterally of the L3 nerve stacy ts. Mild interval progression on the left. Facet and ligamentum flavum hypertrophy are present. L4-L5: Mild disc bulge with moderate spinal stenosis. Moderate bilateral foraminal narrowing with f acet and ligamentum flavum hypertrophy. No interval change. L5-S1: Mild disc bulge with moderate to severe spinal stenosis. Severe right and moderate to severe left foraminal narrowing with slight appearance of interval progression on the right. Compression of exiting L5 nerve roots bilaterally. IMPRESSION: Multilevel degenerative changes with areas of interval progression as above. Multilevel spinal stenosis most severe at L3-4 secondary to disc bulge with contributing effect of fa cet/ligament flavum arthropathy. Multilevel foraminal narrowing most prominent at L5-S1 secondary to facet/ligamentum flavum arthropat hy. Reviewed by: Meena Nye MD on 07/07/2023 7:22 PM PST Approved by: Meena Nye MD on 07/07/2023 7:22 PM PST Station ID: [id number]
== END 2023-07-07 12:49 | disposition home or self-care (01) ==
LOC: DI 12:48
PROVIDERS: ATTEND Physical Medicine & Rehabilitation Pain Medicine
DX: M47.26 Other spondylosis with radiculopathy, lumbar region (principal); M48.062 Spinal stenosis, lumbar region with neurogenic claudication; M51.16 Intervertebral disc disorders with radiculopathy, lumbar region